=== PATIENT | male | born 1970 | race Caucasian/White ===

== ENCOUNTER 2017-03-14 18:49 | Emergency (ER) | payer OTHER ==
[2017-03-14 18:58] VITALS: BP 151/77
--- NOTE | 2017-03-14 19:01 | ERNOTE ---
Date of Service: 03/14/17 Time Seen by Provider: 03/14/17 19:00 Stated Complaint: URI Presenting Symptoms:: cough, sore throat, fever Source: patient, family, RN notes reviewed Exam Limitations: no limitations Immunizations: IMMUNIZATION HX Immunizations Up to Date Yes History of Influenza Vaccine No Hx Pneumococcal Vaccination No Allergies/Adverse Reactions: Allergies No Known Allergies Allergy (Unverified 11/17/14 20:16) Home Medications: HOME MEDICATIONS Aspirin 03/14/17 [Last Taken Unknown] Bactrim 03/14/17 [Last Taken Unknown] Lisinopril 03/14/17 [Last Taken Unknown] Promethazine HCl/Codeine [Prometh-Codein 6.25-10 mg/5 ml] 5 ml PO Q4H PRN #120 ml 03/14/17 [Last Taken Unknown] Wellbutrin 03/14/17 [Last Taken Unknown] predniSONE [Prednisone] 2 tab PO DAILY #10 tab 03/14/17 [Last Taken Unknown] - History of Present Ilness Narrative: 46 y/o male with URI symptoms for 5 days. He was started on Bactrim yesterday and his symptoms have not improved. Date (Duration): 03/09/17 Frequency/Possible Cause: Reports: unknown cause Associated Symptoms: Reports: cough, shortness of breath, facial pain, nasal congestion, nasal drainage, earache, headache, sore throat, fever/chills. Denies: wheezing, dizziness, lightheadedness, muscle aches Prior Treatment: Reports: currently on antibiotics. Denies: recently seen Review of Systems - Review of Systems Constitutional: Present: fatigue, malaise EYE: Present: no symptoms reported ENT: Present: See HPI Respiratory: Present: See HPI Cardiology: Present: no symptoms reported Gastrointestinal/Abdominal: Absent: nausea, abdominal pain Genitourinary: Present: no symptoms reported Musculoskeletal: Absent: muscle pain, joint pain Skin: Absent: rash, lesions Neurological: Present: See HPI Endocrine: Present: no symptoms reported Hematologic/Lymphatic: Present: no symptoms reported Psych: Present: no symptoms reported - Patient's Past Medical History Patient History - Medical: Anxiety, GERD Patient History - Cardiac/Respiratory: Hypertension, Hyperlipidemia, Sleep Apnea Patient History - Cancer: No Hx of Cancer Patient History - Surgical Procedures: T & A, Vasectomy, ENT, Hernia Repair Patient History - Other: None - Social History Living Situations: home Abuse History: No History of abuse Psych History: Hx of Anxiety Smoking Status: Never smoker Alcohol Use: none Drug Use: none - Immunizations Immunizations Up to Date: Yes Hx Pneumococcal Vaccination: No History of Influenza Vaccine: No Physical Exam - Physical Exam General Appearance: Present: alert, mild distress, obese Head Exam: Present: normal inspection Eye Exam: Normal inspection: bilateral Ears, Nose, Throat: Present: abnormal TM (R), abnormal TM (L), nasal congestion , sinus pain/drainage, pharyngeal erythema Neck: Present: normal inspection, nontender, supple Respiratory: Present: no respiratory distress, no accessory muscle use, decreased breath sounds, other - unable to take deep breaths without coughing Cardiovascular/Chest: Present: regular rate, rhythm, no murmur Extremity Exam: Present: normal inspection, normal range of motion, no edema Neurological Exam: Present: alert, oriented, normal mood/affect, no motor/ sensory deficits Skin Exam: Present: normal color, warm/dry ED Progress - Results and Orders Patient's Lab Results:: I have reviewed the patient's lab results. - Vital Signs Patient's Vital Signs:: I have reviewed the patient's vital signs. Vital Signs: Vital Signs 03/14/17 18:52 Temperature 37.4 C Pulse Rate 95 Respiratory 18 Rate Blood Pressure 151/77 O2 Sat by Pulse 95 Oximetry - X-Ray X-Ray #1 X-Ray: chest Interpretation: Interp. by me X-ray Comments: No consolidation or infiltrates suggestive of pneumonia - Progress/Reassessment Chief Complaint: Upper Respiratory Symptoms Progress:: Unchanged Departure - Departure Clinical Impression: Sinusitis, acute Qualifiers: Sinusitis location: unspecified location Recurrence: non-recurrent Qualified Code(s): J01.90 - Acute sinusitis, unspecified Bronchitis, acute Qualifiers: Bronchitis organism: unspecified organism Qualified Code(s): J20.9 - Acute bronchitis, unspecified Disposition: Home Follow Up Needed Condition: Stable Instructions: Acute Bronchitis Additional Instructions: Continue Bactrim Rest, push fluids Tylenol and ibuprofen for pain/fever Referrals: Isiah Steiner MD [Primary Care Provider] - Prescriptions: predniSONE [Prednisone] 2 tab PO DAILY #10 tab Promethazine HCl/Codeine [Prometh-Codein 6.25-10 mg/5 ml] 5 ml PO Q4H PRN #120 ml PRN Reason: Cough
[2017-03-14] MEDS ORDERED: ALBUTEROL SULFATE/IPRATROPIUM 3 ML NEBU IH ONE ×2 (19:07→19:10)
[2017-03-14 19:22] LABS: Hematocrit 42.6 % (42.0-52.0); Hemoglobin 14.4 gm/dL (13.5-18.0); Mean Cell Volume 87.1 fl (78-100); Mean Corpuscular Hemoglobin 29.4 pg (27-31); Mean Corpuscular Hgb Conc 33.8 g/dl (32-36); Mean Platelet Volume 10.1 fl (6.0-9.5); Neutrophil % 67.7 % (42-75.0); Platelet Count 313 K/mm3 (150-450); Red Blood Count 4.89 M/mm3 (4.7-6.0); Red Cell Distribution Width 11.9 % (11.5-14.0); White Blood Count 10.4 K/mm3 (4.0-10.5)
[2017-03-14 19:36] LABS: Albumin * 4.3 gm/dl (3.4-5.0); Anion Gap 16.4 mmol/L (6.8-13.8); BUN/Creatinine Ratio 16.3 (9.0-21.6); Bilirubin, Total 0.5 mg/dL (0.0-1.1); Ca. Corrected For Albumin 8.7 mg/dL (8.4-10.2); Calcium * 9.3 mg/dL (7.9-10.9); Carbon Dioxide 25.5 mmol/L (24-32.6); Potassium 3.9 mmol/L (3.4-4.6); Total Protein 8.4 gm/dL (6.2-8.2)
[2017-03-14] MEDS ORDERED: CODEINE PHOSPHATE/GUAIFENESIN 5 ML UDC PO ONE (19:52)
[2017-03-14] MEDS ORDERED: predniSONE 20 MG TABLET PO ONE (19:52)
[2017-03-14] MEDS ORDERED: CODEINE PHOSPHATE/GUAIFENESIN 5 ML UDC ONE (19:56)
[2017-03-14] MEDS ORDERED: predniSONE 20 MG TABLET ONE (19:56)
== END 2017-03-14 20:00 | disposition home or self-care (01) ==
LOC: ER 18:49
DX: J01.90 Acute sinusitis, unspecified (principal); J20.9 Acute bronchitis, unspecified